=== PATIENT | female | born 1950 | race American Indian/Alaskan Native ===

== ENCOUNTER 2018-07-24 10:04 | Outpatient (CLI) | payer MEDICARE ==
--- NOTE | 2018-07-24 11:01 | XRay Report ---
XRAY RIGHT HIP TWO VIEWS: 07/24/18 10:04:00 CLINICAL: Right hip pain. FINDINGS: No fracture or dislocation.Moderate osteoarthritis with narrowing of the superior joint space and superior acetabular eburnation. Less osteoarthritis of the left hip. The pelvic bones are intact. The SI joints are normal. Pelvic calcifications are consistent with uterine leiomyomata and pelvic phleboliths. IMPRESSION: Osteoarthritis.
== END 2018-07-24 10:05 | disposition home or self-care (01) ==
LOC: SPVIMAG 10:04
PROVIDERS: ATTEND Internal Medicine
DX: M16.11 Unilateral primary osteoarthritis, right hip (principal)

== ENCOUNTER 2018-08-16 09:50 | Outpatient (CLI) | payer MEDICARE ==
--- NOTE | 2018-08-16 10:53 | Mammography Report ---
Bilateral mammogram: Compared to 04/21/16. CAD study utilized. Findings: Predominance adipose tissue bilaterally. No mass or microcalcification. Benign calcifications bilaterally. Benign axillary nodes. Impression: Benign findings. Annual followup recommended. BI-RADS CATEGORY: 2 = Benign ACR BI-RADS MAMMOGRAPHIC CODES: 0 = Needs additional imaging evaluation; 1 = Negative; 2 = Benign; 3 = Probably benign; 4 = Suspicious; 5 = Malignant; 6 = Known biopsy-proven malignancy COMMENT: 1. Dense breast tissue, i.e., adenosis, fibrocystic changes, etc., may obscure an underlying neoplasm. 2. Approximately 10% of cancers are not detected with mammography. 3. A negative mammography report should not delay biopsy if a clinically suspicious mass is present. COMMENT: Patient follow-up letters are generated in [employer].
== END 2018-08-16 09:51 | disposition home or self-care (01) ==
LOC: SPVWC 09:50
PROVIDERS: ATTEND Internal Medicine
DX: Z12.31 Encounter for screening mammogram for malignant neoplasm of breast (principal)
CPT/HCPCS: 77067